=== PATIENT | female | born 1995 | race Two or more races ===

== ENCOUNTER 2025-02-09 10:49 | Emergency (ER) | payer SELFPAY ==
[~2025-02-09] VITALS: Ht 165.1 cm; Wt 68.1 kg
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
[2025-02-09 11:27] LABS: Hematocrit 40.8 % (36.0-46.0); Hemoglobin 13.9 g/dL (12.2-16.2); Mean Corpuscular Hemoglobin 28.9 pg (28.0-32.0); Mean Corpuscular Volume 84.6 fL (80.0-100.0); Nucleated Red Blood Cells % 0.0 %
[2025-02-09 11:45] LABS: Alanine Aminotransferase 12 U/L (7-40); Albumin 4.5 g/dL (3.2-4.8); Alkaline Phosphatase 70 U/L (46-116); Anion Gap 11 (5-15); BUN/Creatinine Ratio 10.8 (10.0-20.0); Bilirubin, Total 0.4 mg/dL (0.2-1.0); Calcium 9.2 mg/dL (8.7-10.4); Carbon Dioxide 24 mmol/L (20-31); Glucose 95 mg/dL (74-106); Potassium 3.7 mmol/L (3.5-5.1); Sodium 142 mmol/L (136-145); Total Protein 7.4 g/dL (5.7-8.2)
[2025-02-09 11:48] LABS: Blood Urea Nitrogen 8 mg/dL (9-23); Chloride 107 mmol/L (98-107)
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
[2025-02-09] MEDS: ACETAMINOPHEN 325 MG TAB PO ONE (12:38)
[2025-02-09] MEDS: IBUPROFEN 600 MG TAB PO ONE (12:45)
[2025-02-09 15:41] LABS: Amphetamine Screen, Urine Neg (NEGATIVE); Barbiturate Scree,Urine Neg (NEGATIVE); Benzodiazephine Screen, Urine Neg (NEGATIVE); Cannabinoid Screen, Urine Neg (NEGATIVE); Cocaine Screen, Urine Neg (NEGATIVE); Opiate Scree,Urine Neg (NEGATIVE); Phencyclidine Screen, Urine Neg (NEGATIVE)
[2025-02-09 17:39] VITALS: BP 109/74; PULSE 68; RESP 20; TEMP 98.2; O2SAT 99
== END 2025-02-09 17:46 | disposition home or self-care (01) ==
LOC: ER 10:49 → EDBD 10:49 → ER 17:46
DX: S49.90XA Unspecified injury of shoulder and upper arm, unspecified arm, initial encounter (principal); S89.90XA Unspecified injury of unspecified lower leg, initial encounter; V43.52XA Car driver injured in collision with other type car in traffic accident, initial encounter; Y93.89 Activity, other specified; Y92.488 Other paved roadways as the place of occurrence of the external cause; Y99.8 Other external cause status
CPT/HCPCS: 36415; 72040; 73030; 73560; 80053; 80307; 80320; 84702; 85025